=== PATIENT | male | born 1980 | race Caucasian/White ===

== ENCOUNTER 2018-03-27 19:09 | Emergency (ER) | payer MEDICAID ==
[~2018-03-27] VITALS: Ht 188 cm; Wt 142.9 kg
[~2018-03-27 19:09] MED LIST: BUTA1CAP39 PO; HYDR50CA PO; MECL-106 PO; OXCA300T4 PO; RISP1TAB94 PO; TRAZ100T92 PO
--- OUTSIDE RECORDS SUMMARY | 2018-03-27 19:14 | XMS REPORT ---
Author Author EVERARDO WIGGINS [facility] eClinicalWorks Address Unknown Phone Unavailable Care Team Providers Care Terrazzo Supervisor Name Role Phone EVERARDO WIGGINS CP Unavailable Allergies No Known Allergies Problems Problem Type Condition Code Onset Dates Condition Status Problem Post-traumatic headache, unspecified, not intractable G44.309 Active Problem Bipolar disorder, unspecified F31.9 Active Problem Unspecified injury of head, sequela S09.90XS Active Medications Medication Code System Code Instructions Start Date End Date Status Dosage Tramadol HCl [facility] [address]-00 50 mg Orally every 6 hours as needed April 1 tablet Results No Known Results Summary Purpose eClinicalWorks Submission
--- OUTSIDE RECORDS SUMMARY | 2018-03-27 19:14 | XMS REPORT ---
Author EVERARDO Hickey [facility] Address [address] [place] [address] Care Team Providers Care Label Maker Name Role Phone EVERARDO WIGGINS Unavailable PROBLEMS Type Condition ICD9-CM Code [id number] Code Onset Dates Condition Status SNOMED Code Problem Unspecified injury of head, sequela S09.90XS Active 96730678 Problem Post-traumatic headache, unspecified, not intractable G44.309 Active 54686448 Problem Bipolar disorder, unspecified F31.9 Active 59324353 Assessment Post-traumatic headache, unspecified, not intractable G44.309 Jul, Active 24135686 ALLERGIES Substance Reaction Event Type Date Status Latex skin bleeds Drug Allergy Jul, Active SOCIAL HISTORY No smoking Hx information available PLAN OF CARE VITAL SIGNS Height 74.2 in 2016-08-16 Weight 313.2 lbs 2016-08-16 Heart Rate 76 bpm 2016-08-16 Respiratory Rate 20 2016-08-16 BMI 39.99 kg/m2 2016-08-16 Blood pressure systolic 116 mmHg 2016-08-16 Blood pressure diastolic 70 mmHg 2016-08-16 MEDICATIONS Medication Instructions Dosage Frequency Start Date End Date Duration Status Duloxetine HCl 60 MG Orally Once a day 1 capsule 24h Active Meclizine HCl 25 MG Orally Once a day 1 tablet as needed 24h Apr, Active Naproxen 500 MG Orally bid pc 1 Apr, Active Risperdal 1 MG Orally Once a day 1 tablet 24h Active Fioricet 50-300-40 MG Orally every 4 hrs 1 capsule as needed 4h Active Gfcujkhsxp-KYYM-Hjnc-Cod 16-140-65-30 MG TAKE ONE CAPSULE BY MOUTH THREE TIMES DAILY NEEDED Active Trileptal 300 MG Orally 2 times a day 1 tablet 12h Jul, Active Prazosin HCl 1 MG Orally Once a day 1 capsule at bedtime 24h Jul, 30 day(s) Active Gabapentin 300 MG Orally 4 times a day 1 capsule 6h Active Tramadol HCl 50 mg Orally every 6 hours as needed 1 tablet Apr, Active HydrOXYzine Pamoate 50 mg Orally every 6 hrs 1 capsule as needed 6h Sep 30 days Active RESULTS No Results PROCEDURES Procedure Date Ordered Related Diagnosis Body Site Office Visit, Est Pt., Level 2 Aug 16, 2016 IMMUNIZATIONS No Known Immunizations
--- OUTSIDE RECORDS SUMMARY | 2018-03-27 19:14 | XMS REPORT ---
Author Author EVERARDO WIGGINS [facility] Address [address] [place] [address] Care Team Providers Care Lawn Service Manager Name Role Phone EVERARDO WIGGINS Unavailable PROBLEMS Type Condition ICD9-CM Code [id number] Code Onset Dates Condition Status SNOMED Code Problem Unspecified injury of head, sequela S09.90XS Active 33652798 Problem Post-traumatic headache, unspecified, not intractable G44.309 Active 70631747 Problem Bipolar disorder, unspecified F31.9 Active 20521354 Assessment Post-traumatic headache, unspecified, not intractable G44.309 Oct, Active 41619730 ALLERGIES Unknown Allergies SOCIAL HISTORY No smoking Hx information available PLAN OF CARE VITAL SIGNS MEDICATIONS Medication Instructions Dosage Frequency Start Date End Date Duration Status Tramadol HCl 50 mg Orally every 6 hours as needed 1 tablet Apr, Active RESULTS No Results PROCEDURES No Known procedures IMMUNIZATIONS No Known Immunizations
--- OUTSIDE RECORDS SUMMARY | 2018-03-27 19:14 | XMS REPORT ---
Author Author EVERARDO WIGGINS Organization [facility] Address [address] [place] [address] Care Team Providers Care Offshore Wind Operations Manager Name Role Phone EVERARDO WIGGINS Unavailable PROBLEMS Type Condition ICD9-CM Code MTI89-QC Code Onset Dates Condition Status SNOMED Code Problem Migraine without status migrainosus, not intractable, unspecified migraine type G43.909 Active 17111077 Problem Posttraumatic stress disorder F43.10 Active 66168365 Problem Bipolar disorder, unspecified F31.9 Active 66732418 Problem Unspecified injury of head, sequela S09.90XS Active 80040505 Problem Post-traumatic headache, unspecified, not intractable G44.309 Active 68833677 ALLERGIES Unknown Allergies SOCIAL HISTORY No smoking Hx information available PLAN OF CARE VITAL SIGNS MEDICATIONS Medication Instructions Dosage Frequency Start Date End Date Duration Status Gabapentin 300 MG Orally 4 times a day 1 capsule 6h Active Prazosin HCl 1 MG Orally Once a day 1 capsule at bedtime 24h Jul, 30 day(s) Active Risperdal 1 MG Orally Once a day 1 tablet 24h Active HydrOXYzine Pamoate 50 mg Orally every 6 hrs 1 capsule as needed 6h Sep 30 days Active Tramadol HCl 50 mg Orally every 6 hours as needed 1 tablet Apr, Active RESULTS No Results PROCEDURES No Known procedures IMMUNIZATIONS No Known Immunizations
--- OUTSIDE RECORDS SUMMARY | 2018-03-27 19:14 | XMS REPORT ---
Author Author EVERARDO WIGGINS Organization eClinicalWorks Address Unknown Phone Unavailable Care Team Providers Care Game Designer/Creative Director Name Role Phone EVERARDO WIGGINS CP Unavailable Allergies No Known Allergies Problems Problem Type Condition Code Onset Dates Condition Status Problem Post-traumatic headache, unspecified, not intractable G44.309 Active Problem Bipolar disorder, unspecified F31.9 Active Problem Unspecified injury of head, sequela S09.90XS Active Assessment Post-traumatic headache, unspecified, not intractable G44.309 Active Medications Medication Code System Code Instructions Start Date End Date Status Dosage Tramadol HCl [facility] [address]-86 50 mg Orally every 6 hours as needed April 1 tablet Results No Known Results Summary Purpose eClinicalWorks Submission
--- OUTSIDE RECORDS SUMMARY | 2018-03-27 19:14 | XMS REPORT ---
Author Author EVERARDO WIGGINS Organization eClinicalWorks Address Unknown Phone Unavailable Care Team Providers Care Policy Service Coordinator Name Role Phone EVERARDO WIGGINS Unavailable Allergies No Known Allergies Problems Problem Type Condition Code Onset Dates Condition Status Problem Post-traumatic headache, unspecified, not intractable G44.309 Active Problem Bipolar disorder, unspecified F31.9 Active Problem Unspecified injury of head, sequela S09.90XS Active Medications Medication Code System Code Instructions Start Date End Date Status Dosage Trileptal [facility] [address]-80 300 MG Orally twice a day Nov 16, 2015 1 tablet Tramadol HCl [facility] [address]-93 50 mg Orally every 6 hours as needed April 1 tablet Fioricet [facility] [address]-15 50-300-40 MG Orally every 4 hrs 1 capsule as needed Risperdal [facility] [address]-91 1 MG Orally twice a day 1 tablet HydrOXYzine Pamoate [facility] [address]-32 50 mg Orally every 6 hrs Oct 16, 2015 1 capsule as needed Gabapentin [facility] [address]-34 300 MG Orally Three times a day 1 capsule Meclizine HCl [facility] [address]-99 25 MG Orally Once a day May 17, 2016 1 tablet as needed Results No Known Results Summary Purpose eClinicalWorks Submission
--- OUTSIDE RECORDS SUMMARY | 2018-03-27 19:14 | XMS REPORT ---
Author Author GARRET Mcintyre [facility] Address Unknown Care Team Providers Care Corporate Real Estate Manager Name Role Phone GARRET Mcintyre Unavailable PROBLEMS Type Condition ICD9-CM Code IMQ38-IO Code Onset Dates Condition Status SNOMED Code Problem Migraine without status migrainosus, not intractable, unspecified migraine type G43.909 Active 16537305 Problem Posttraumatic stress disorder F43.10 Active 73835167 Problem Bipolar disorder, unspecified F31.9 Active 58820660 Problem Post-traumatic headache, unspecified, not intractable G44.309 Active 91260979 Problem Unspecified injury of head, sequela S09.90XS Active 26977711 ALLERGIES Unknown Allergies SOCIAL HISTORY No smoking Hx information available PLAN OF CARE Activity Details Follow Up prn Reason:1 hr te (upper right) VITAL SIGNS MEDICATIONS Unknown Medications RESULTS No Results PROCEDURES Procedure Date Ordered Related Diagnosis Body Site COMP ORAL EVALUATION - NEW/EST PT Oct 10, 2016 PANORAMIC FILM SEE ALSO CODE 22267 Oct 10, 2016 IMMUNIZATIONS No Known Immunizations
--- OUTSIDE RECORDS SUMMARY | 2018-03-27 19:14 | XMS REPORT ---
Author Author ALBANIA GIL Organization eClinicalWorks Address Unknown Phone Unavailable Care Team Providers Care Loading Inspector Name Role Phone ALBANIA GIL Unavailable Allergies No Known Allergies Problems Problem Type Condition Code Onset Dates Condition Status Assessment Bipolar disorder, unspecified F31.9 Active Problem Bipolar disorder, unspecified F31.9 Active Medications No Known Medications Procedures Procedure Coding System Code Date Psychotherapy, patient &/family, 45 minutes, established patient CPT-4 20466 Nov 06, 2015 Results No Known Results Summary Purpose eClinicalWorks Submission
--- OUTSIDE RECORDS SUMMARY | 2018-03-27 19:14 | XMS REPORT ---
Author Author ALBANIA GIL [facility] eClinicalWorks Address Unknown Phone Unavailable Care Team Providers Care Pillowcase Sewer Name Role Phone ALBANIA GIL Unavailable Allergies No Known Allergies Problems Problem Type Condition Code Onset Dates Condition Status Assessment Bipolar disorder, unspecified F31.9 Active Problem Bipolar disorder, unspecified F31.9 Active Medications No Known Medications Procedures Procedure Coding System Code Date Psychotherapy, patient &/family, 45 minutes, established patient CPT-4 79872 Dec 15, 2015 Results No Known Results Summary Purpose eClinicalWorks Submission
--- OUTSIDE RECORDS SUMMARY | 2018-03-27 19:15 | XMS REPORT ---
Author Author SADIA RAMIREZ Organization [employer]Clinical[employer] Address Unknown Phone Unavailable Care Team Providers Care Export Freight Manager Name Role Phone SADIA RAMIREZ CP Unavailable Allergies No Known Allergies Problems Problem Type Condition Code Onset Dates Condition Status Problem Bipolar disorder, unspecified F31.9 Active Medications No Known Medications Results No Known Results Summary Purpose eClinicalWorks Submission
--- OUTSIDE RECORDS SUMMARY | 2018-03-27 19:15 | XMS REPORT ---
Author Author ALBANIA GIL [facility] eClinicalWorks Address Unknown Phone Unavailable Care Team Providers Care Grade School Teacher Name Role Phone ALBANIA GIL Unavailable Allergies No Known Allergies Problems Problem Type Condition Code Onset Dates Condition Status Assessment Bipolar affective disorder F31.9 Active Problem Bipolar affective disorder F31.9 Active Medications No Known Medications Procedures Procedure Coding System Code Date Psych diagnostic evaluation, new patient CPT-4 62401 Oct 07, 2015 Results No Known Results Summary Purpose eClinicalWorks Submission
--- OUTSIDE RECORDS SUMMARY | 2018-03-27 19:15 | XMS REPORT ---
Author Author EVERARDO WIGGINS Organization [employer] Address Unknown Phone Unavailable Care Team Providers Care Crime Scene Evidence Technician Name Role Phone EVERARDO WIGGINS CP Unavailable Allergies No Known Allergies Problems Problem Type Condition Code Onset Dates Condition Status Problem Post-traumatic headache, unspecified, not intractable G44.309 Active Problem Bipolar disorder, unspecified F31.9 Active Problem Unspecified injury of head, sequela S09.90XS Active Medications No Known Medications Results No Known Results Summary Purpose eClinicalWorks Submission
--- OUTSIDE RECORDS SUMMARY | 2018-03-27 19:15 | XMS REPORT ---
Author Author JULIETTE LAMB Organization eClinicalWorks Address Unknown Phone Unavailable Care Team Providers Care Residential Mortgage Manager Name Role Phone JULIETTE LAMB CP Unavailable Allergies, Adverse Reactions, Alerts Substance Reaction Event Type Latex skin bleeds Drug Allergy Problems Problem Type Condition Code Onset Dates Condition Status Assessment Bipolar disorder, unspecified F31.9 Active Assessment Posttraumatic stress disorder F43.10 Active Problem Bipolar disorder, unspecified F31.9 Active Medications Medication Code System Code Instructions Start Date End Date Status Dosage HydrOXYzine Pamoate [facility] [address]-14 50 MG Orally voucher every 6 hrs Oct 16, 2015 1 capsule as needed Trileptal [facility] [address]-88 300 MG Orally voucher twice a day Nov 16, 2015 as directed Procedures Procedure Coding System Code Date Office Visit, Est Pt., Level 3 CPT-4 98259 Nov 16, 2015 Vital Signs Date/Time: Nov 16, 2015 Blood Pressure Systolic 122 mmHg Weight 317.5 lbs Height 74.2 in BMI 40.54 Index Blood Pressure Diastolic 82 mmHg Results No Known Results Summary Purpose eClinicalWorks Submission
--- OUTSIDE RECORDS SUMMARY | 2018-03-27 19:15 | XMS REPORT ---
Author Author EVERARDO WIGGINS [facility] Address [address] [place] [address] Care Team Providers Care Systems Administration Analyst Name Role Phone EVERARDO WIGGINS Unavailable PROBLEMS Type Condition ICD9-CM Code [id number] Code Onset Dates Condition Status SNOMED Code Problem Migraine without status migrainosus, not intractable, unspecified migraine type G43.909 Active 58270078 Problem Posttraumatic stress disorder F43.10 Active 81443648 Problem Bipolar disorder, unspecified F31.9 Active 06458379 Problem Post-traumatic headache, unspecified, not intractable G44.309 Active 21536817 Problem Unspecified injury of head, sequela S09.90XS Active 52419400 ALLERGIES Unknown Allergies SOCIAL HISTORY No smoking Hx information available PLAN OF CARE VITAL SIGNS MEDICATIONS Medication Instructions Dosage Frequency Start Date End Date Duration Status Dlhreqcjcb-UGYA-Pgue-Cod 53-379-17-30 MG Orally every 8 hours, PRN 1 capsule as needed Active RESULTS No Results PROCEDURES No Known procedures IMMUNIZATIONS No Known Immunizations
--- OUTSIDE RECORDS SUMMARY | 2018-03-27 19:15 | XMS REPORT ---
Author Author JULIETTE LAMB Organization eClinicalWorks Address Unknown Phone Unavailable Care Team Providers Care Methods Specialist Engineer Name Role Phone JULIETTE LAMB CP Unavailable Allergies No Known Allergies Problems Problem Type Condition Code Onset Dates Condition Status Problem Post-traumatic headache, unspecified, not intractable G44.309 Active Problem Bipolar disorder, unspecified F31.9 Active Problem Unspecified injury of head, sequela S09.90XS Active Medications No Known Medications Results No Known Results Summary Purpose eClinicalWorks Submission
--- OUTSIDE RECORDS SUMMARY | 2018-03-27 19:15 | XMS REPORT ---
Author EVERARDO Hickey [facility] eClinicalWorks Address Unknown Phone Unavailable Care Team Providers Care Ski Technician Name Role Phone EVERARDO WIGGINS CP Unavailable Allergies, Adverse Reactions, Alerts Substance Reaction Event Type Latex skin bleeds Drug Allergy Problems Problem Type Condition Code Onset Dates Condition Status Problem Post-traumatic headache, unspecified, not intractable G44.309 Active Problem Bipolar disorder, unspecified F31.9 Active Problem Unspecified injury of head, sequela S09.90XS Active Assessment Unspecified injury of head, sequela S09.90XS Active Assessment Post-traumatic headache, unspecified, not intractable G44.309 Active Medications Medication Code System Code Instructions Start Date End Date Status Dosage Trazodone HCl [facility] [address]-55 100 MG Orally Once a day 2 tablet at bedtime Meclizine HCl [facility] [address]-75 25 MG Orally Once a day May 17, 2016 1 tablet as needed Fioricet [facility] [address]-99 50-300-40 MG Orally every 4 hrs 1 capsule as needed Zofran ODT [facility] [address]-19 8 MG Orally not defined Zofran ODT [facility] [address]-16 8 MG Orally May 17, 2016 as directed Tramadol HCl [facility] [address]-82 50 MG Orally May 17, 2016 as directed Tramadol HCl [facility] [address]-33 50 mg Orally 4 times a day 1 tablet Risperdal [facility] [address]-29 1 MG Orally twice a day 1 tablet Trileptal [facility] [address]-65 300 MG Orally twice a day Nov 16, 2015 1 tablet Gabapentin [facility] [address]-73 300 MG Orally Three times a day 1 capsule Procedures Procedure Coding System Code Date Office Visit, Est Pt., Level 3 CPT-4 00033 June 09, 2016 Vital Signs Date/Time: June 09, 2016 Cardiac Monitoring Heart Rate 68 bpm Weight 311.2 lbs Height 74.2 in Blood Pressure Diastolic 106 mmHg Blood Pressure Systolic 142 mmHg Results No Known Results Summary Purpose eClinicalWorks Submission
--- OUTSIDE RECORDS SUMMARY | 2018-03-27 19:15 | XMS REPORT ---
Author Author JULIETTE LAMB Organization eClinicalWorks Address Unknown Phone Unavailable Care Team Providers Care Manufacturing Maintenance Mechanic Name Role Phone JULIETTE LAMB CP Unavailable Allergies, Adverse Reactions, Alerts Substance Reaction Event Type Latex skin bleeds Drug Allergy Problems Problem Type Condition Code Onset Dates Condition Status Assessment Bipolar disorder, unspecified F31.9 Active Assessment Posttraumatic stress disorder F43.10 Active Problem Bipolar affective disorder F31.9 Active Medications Medication Code System Code Instructions Start Date End Date Status Dosage Risperdal [facility] [address]-94 1 MG Orally voucher twice a day Oct 16, 2015 1 tablet Trazodone HCl [facility] [address]-65 100 MG Orally - voucher Once a day Oct 16, 2015 2 tablets at bedtime HydrOXYzine Pamoate [facility] [address]-05 50 MG Orally voucher every 6 hrs Oct 16, 2015 1 capsule as needed Procedures Procedure Coding System Code Date Psych diagnostic evaluation w/medical services, new patient CPT-4 90998 Oct 16, 2015 Vital Signs Date/Time: Oct 16, 2015 Cardiac Monitoring Heart Rate 72 bpm Weight 315.0 lbs Height 74.2 in BMI 40.22 Index Blood Pressure Diastolic 80 mmHg Blood Pressure Systolic 114 mmHg Results No Known Results Summary Purpose eClinicalWorks Submission
--- OUTSIDE RECORDS SUMMARY | 2018-03-27 19:15 | XMS REPORT ---
Author Author EVERARDO WIGGINS [facility] eClinicalWorks Address Unknown Phone Unavailable Care Team Providers Care Regional Transportation Manager Name Role Phone EVERARDO WIGGINS CP Unavailable Allergies No Known Allergies Problems Problem Type Condition Code Onset Dates Condition Status Problem Post-traumatic headache, unspecified, not intractable G44.309 Active Problem Bipolar disorder, unspecified F31.9 Active Problem Unspecified injury of head, sequela S09.90XS Active Medications Medication Code System Code Instructions Start Date End Date Status Dosage Tramadol HCl [facility] [address]-17 50 mg Orally every 6 hours as needed April 1 tablet Results No Known Results Summary Purpose eClinicalWorks Submission
--- OUTSIDE RECORDS SUMMARY | 2018-03-27 19:15 | XMS REPORT ---
Author Author JULIETTE LAMB Organization [facility] Address Unknown Care Team Providers Care Computer Systems Security Administrator Name Role Phone JULIETTE LAMB Unavailable PROBLEMS Type Condition ICD9-CM Code [id number] Code Onset Dates Condition Status SNOMED Code Problem Unspecified injury of head, sequela S09.90XS Active 22424171 Problem Post-traumatic headache, unspecified, not intractable G44.309 Active 56764946 Assessment Posttraumatic stress disorder F43.10 Jul, Active 67049075 Problem Bipolar disorder, unspecified F31.9 Active 13648851 Assessment Bipolar disorder, unspecified F31.9 Jul, Active 60634345 ALLERGIES Substance Reaction Event Type Date Status Latex skin bleeds Drug Allergy Jul, Active SOCIAL HISTORY No smoking Hx information available PLAN OF CARE VITAL SIGNS Height 74.2 in 2016-08-15 Weight 310.2 lbs 2016-08-15 Heart Rate 72 bpm 2016-08-15 Respiratory Rate 20 2016-08-15 BMI 39.61 kg/m2 2016-08-15 Blood pressure systolic 130 mmHg 2016-08-15 Blood pressure diastolic 85 mmHg 2016-08-15 MEDICATIONS Medication Instructions Dosage Frequency Start Date End Date Duration Status Risperdal 1 MG Orally twice a day 1 tablet 12h 30 days Active Gabapentin 300 MG Orally Three times a day 1 capsule 8h Active Prazosin HCl 1 MG Orally Once a day 1 capsule at bedtime 24h Jul, 30 day(s) Active Duloxetine HCl 60 MG Orally Once a day 1 capsule 24h Active Trileptal 300 MG Orally three times a day 1 tablet 8h Jul, 30 days Active Fioricet 50-300-40 MG Orally every 4 hrs 1 capsule as needed 4h Active Meclizine HCl 25 MG Orally Once a day 1 tablet as needed 24h Apr, Active HydrOXYzine Pamoate 50 mg Orally every 6 hrs 1 capsule as needed 6h Sep 30 days Active Naproxen 500 MG Orally bid pc 1 Apr, Active Mcuvzhtskj-TJYF-Zwbw-Cod 67-532-44-30 MG TAKE ONE CAPSULE BY MOUTH THREE TIMES DAILY NEEDED Active Tramadol HCl 50 mg Orally every 6 hours as needed 1 tablet Apr, Active RESULTS No Results PROCEDURES Procedure Date Ordered Related Diagnosis Body Site Office Visit, Est Pt., Level 3 Aug 15, 2016 IMMUNIZATIONS No Known Immunizations
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
--- OUTSIDE RECORDS SUMMARY | 2018-03-27 19:15 | XMS REPORT ---
Author Author EVERARDO WIGGINS [facility] Address [address] [place] [address] Care Team Providers Care Graphic Design Professor Name Role Phone EVERARDO WIGGINS Unavailable PROBLEMS Type Condition ICD9-CM Code MPH79-YU Code Onset Dates Condition Status SNOMED Code Problem Migraine without status migrainosus, not intractable, unspecified migraine type G43.909 Active 53482939 Problem Posttraumatic stress disorder F43.10 Active 76140298 Problem Bipolar disorder, unspecified F31.9 Active 32253897 Problem Post-traumatic headache, unspecified, not intractable G44.309 Active 72162228 Problem Unspecified injury of head, sequela S09.90XS Active 38457078 ALLERGIES No Information SOCIAL HISTORY Never Assessed PLAN OF CARE VITAL SIGNS MEDICATIONS Unknown Medications RESULTS No Results PROCEDURES No Known procedures IMMUNIZATIONS No Known Immunizations MEDICAL (GENERAL) HISTORY Type Description Date Medical History bipolar disorder Medical History PTSD Medical History 13 concussions per pt Surgical History Bilateral knee scope Surgical History Left ankle scope Hospitalization History Hospitalization for surgery only
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
[2018-03-27 22:14] LABS: BASOPHILS % (AUTO) 0 % (0-10); EOSINOPHILS # (AUTO) 0.6 10^3/uL (0.0-0.3); EOSINOPHILS % (AUTO) 6 % (0-10); HEMATOCRIT 42 % (40-54); HEMOGLOBIN 14.4 G/DL (13.3-17.7); LYMPHOCYTES % (AUTO) 28 % (12-44); MEAN CORPUSCULAR HEMOGLOBIN 31 PG (25-34); MEAN CORPUSCULAR HGB CONC 35 G/DL (32-36); MEAN CORPUSCULAR VOLUME 90 FL (80-99); MEAN PLATELET VOLUME 12.4 FL (7.4-10.4); MONOCYTES # (AUTO) 0.9 X 10^3 (0.0-1.0); MONOCYTES % (AUTO) 9 % (0-12); NEUTROPHILS % (AUTO) 57 % (42-75); PLATELET COUNT 185 10^3/uL (130-400); RED BLOOD COUNT 4.59 10^6/uL (4.35-5.85); RED CELL DISTRIBUTION WIDTH 13.2 % (10.0-14.5); WHITE BLOOD COUNT 10.6 10^3/uL (4.3-11.0)
[2018-03-27 22:32] LABS: ALANINE AMINOTRANSFERASE 76 U/L (0-55); ALBUMIN 4.3 GM/DL (3.2-4.5); ALKALINE PHOSPHATASE 67 U/L (40-136); BILIRUBIN,TOTAL 0.5 MG/DL (0.1-1.0); BUN/CREATININE RATIO 18; CALCIUM 9.6 MG/DL (8.5-10.1); CARBON DIOXIDE 23 MMOL/L (21-32); CHLORIDE 106 MMOL/L (98-107); CREATININE SERUM 1.01 MG/DL (0.60-1.30); GFR ESTIMATED > 60; GLUCOSE 103 MG/DL (70-105); SODIUM 140 MMOL/L (135-145); TOTAL PROTEIN 7.4 GM/DL (6.4-8.2)
[2018-03-27] MEDS ORDERED: CYCLOBENZAPRINE 10 MG (FLEXERIL) TAB PO STA (23:14)
[2018-03-27] MEDS ORDERED: TIZA4CAP PO (23:18)
[2018-03-27 23:27] VITALS: BP 140/74
--- NOTE | 2018-03-28 06:45 | Diagnostic Imaging Report ---
PROCEDURE: US left lower extremity venous. TECHNIQUE: Multiple real-time grayscale images were obtained over the left lower extremity in various projections. Additional duplex Doppler and color Doppler images were also obtained. INDICATION: Left leg pain. FINDINGS: There is normal color flow enhancement throughout the left lower extremity venous system. No evidence of thrombosis. There is normal augmentation of flow with calf compression. No popliteal cyst. IMPRESSION: Negative left lower extremity for venous thrombosis. Dictated by: Dictated on workstation # [id number]
== END 2018-03-27 23:28 | disposition home or self-care (01) ==
LOC: EDUNIT# 19:09 → ER 19:11
DX: M79.662 Pain in left lower leg (principal); F17.210 Nicotine dependence, cigarettes, uncomplicated; G43.909 Migraine, unspecified, not intractable, without status migrainosus; M54.5 Low back pain; G89.29 Other chronic pain; Z91.040 Latex allergy status; Z88.8 Allergy status to other drugs, medicaments and biological substances
CPT/HCPCS: 36415; 80053; 85025; 86141

== ENCOUNTER → 2018-07-16 | Outpatient (CLI) | payer MEDICAID ==
[~2018-07-16] MED LIST changes: +TIZA4CAP PO; +TRAZ-190 PO; -TRAZ100T92 PO
--- NOTE | 2018-07-16 11:01 | Diagnostic Imaging Report ---
INDICATION: Back pain. TECHNIQUE: AP and lateral views of the lumbar spine were obtained FINDINGS: The lumbar vertebrae are normal in height and alignment. There is no fracture, subluxation, or compression deformity. There is no spondylolysis or spondylolisthesis. The disc spaces are normal in height. IMPRESSION: Unremarkable lumbar spine series. Dictated by: Dictated on workstation # [id number]
== END ==
LOC: RAD 08:53
PROVIDERS: ATTEND Family Medicine
DX: M54.16 Radiculopathy, lumbar region (principal); M62.81 Muscle weakness (generalized)
CPT/HCPCS: 72100

== ENCOUNTER 2018-12-25 09:39 | Outpatient (RCR) | payer MEDICAID, OTHER ==
[2018-12-28] MEDS ORDERED: TRIA16.99 NS (12:31)
[2018-12-28] MEDS ORDERED: RIZA10TA25 PO (12:31)
[2018-12-28] MEDS ORDERED: FLUO60TA PO (12:31)
[2018-12-28] MEDS ORDERED: CLON1TAB13 PO (12:31)
[2018-12-28] MEDS ORDERED: TRAM50TA2 PO (12:31)
[2018-12-28] MEDS ORDERED: NORT10CA PO (12:31)
[2018-12-28] MEDS ORDERED: GABA-488 PO (12:31)
== END 2019-01-11 10:57 | disposition home or self-care (01) ==
PROVIDERS: ATTEND Family Medicine
DX: M50.30 Other cervical disc degeneration, unspecified cervical region (principal); G44.209 Tension-type headache, unspecified, not intractable; Z87.820 Personal history of traumatic brain injury

== ENCOUNTER 2018-12-28 11:57 | Emergency (ER) | payer OTHER ==
[~2018-12-28] VITALS: Ht 188 cm; Wt 142.9 kg
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
[2018-12-28] MEDS ORDERED: CLON1TAB13 PO (12:31)
[2018-12-28] MEDS ORDERED: TRIA16.99 NS (12:31)
[2018-12-28] MEDS ORDERED: NORT10CA PO (12:31)
[2018-12-28] MEDS ORDERED: RIZA10TA25 PO (12:31)
[2018-12-28] MEDS ORDERED: GABA-488 PO (12:31)
[2018-12-28] MEDS ORDERED: TRAM50TA2 PO (12:31)
[2018-12-28] MEDS ORDERED: FLUO60TA PO (12:31)
--- NOTE | 2018-12-28 12:32 | NUR ---
PT. DENIES SUICIDAL IDEATIONS AT THIS TIME.
--- NOTE | 2018-12-28 13:52 | ED Psychosocial ---
General Chief Complaint: Psych/Social Disorder Stated Complaint: MENTAL EVALUATION Nursing Triage Note: C/O HEARING VOICES. HAS NOT BEEN TAKING PSYCH MEDS FOR @ 3 MONTHS. Source: patient Exam Limitations: no limitations History of Present Illness Date Seen by Provider: Dec 28, 2018 Time Seen by Provider: 13:20 Initial Comments 38-year-old male who presents to the emergency room with complaints of hearing voices that started last night. He has had history of auditory hallucinations and mental health disorder but reports that he has not taken any of his medication for 3 months. He reports that he went home early from work yesterday because he became very angry at his situation with his coworkers and he felt like he was going to harm them. He reports that the voices started last night and are telling him that if he just her his coworkers people might respect him. The voices are also "degrading and belittling him" "telling him that he is worthless". He reports that he's heard voices in the past but never the ones telling him to harm someone. He sees Delores Arango M.D. for primary care. He does not see anyone for mental health since moving to the area 6 months ago. Timing/Duration: yesterday Associated Symptoms: other (auditory hallucinations telling him to harm coworkers.) Allergies and Home Medications Allergies Coded Allergies: latex (Unverified Allergy, Unknown, 07/22/14) Uncoded Allergies: TRAZADONE (Allergy, Mild, 03/27/18) Home Medications Clonazepam 1 Mg Tablet, 1 MG PO DAILY, (Reported) Fluoxetine HCl 60 Mg Tablet, 60 MG PO DAILY, (Reported) Gabapentin 300 Mg Capsule, 300 MG PO TID, (Reported) Nortriptyline HCl 10 Mg Capsule, 10 MG PO HS, (Reported) Rizatriptan Benzoate 10 Mg Tab.rapdis, 10 MG PO PRN, (Reported) Tizanidine HCl 4 Mg Capsule, 4 MG PO TID PRN for SPASMS Prescribed by: JUANIS SHARMA on 03/27/18 0852 Tramadol HCl 50 Mg Tablet, 50 MG PO PRN, (Reported) Patient Home Medication List Home Medication List Reviewed: Yes Review of Systems Constitutional: no symptoms reported, see HPI Psychiatric/Neurological: See HPI, Emotional Problems, Other (auditory hallucinations) All Other Systems Reviewed Negative Unless Noted: Yes Past Ybnzwfh-Hrpsxp-Wkkmww Hx Past Med/Social Hx: Reviewed Nursing Past Med/Soc Hx Patient Social History Alcohol Use: Rarely Uses Number of Drinks Today: AA Alcohol Beverage of Choice: Beer Recreational Drug Use: No Smoking Status: Former Smoker Type Used: Electronic/Vapor, Smokeless Tobacco Former Smoker, Quit: Jan 16, 2007 Recent Foreign Travel: No Contact w/Someone Who Travel: No Recent Infectious Disease Expo: No Recent Hopitalizations: No Immunizations Up To Date Tetanus Booster (TDap): Less than 5yrs PED Vaccines UTD: Yes Past Medical History Surgeries: Yes (nasal sinus sx) Orthopedic Respiratory: No Cardiac: No Neurological: Yes Headaches /Migraines Reproductive Disorders: No Genitourinary: No Gastrointestinal: No Musculoskeletal: Yes Degenerate Disk Disease, Chronic Back Pain Endocrine: No Cancer: No Psychosocial: Yes Anxiety, PTSD, Violent Behavior, Depression Integumentary: No Blood Disorders: No Family Medical History Reviewed Nursing Family Hx No Pertinent Family Hx Physical Exam Vital Signs - First Documented 12/28/18 12:17 Temp 98.6 Pulse 82 Resp 18 B/P (MAP) 156/87 (110) Pulse Ox 97 O2 Delivery Room Air Capillary Refill : Less Than 3 Seconds Height, Weight, BMI Height: 6'2.00" Weight: 315lbs. oz. 142.653424oi; 36.59 BMI Method:Stated General Appearance: WD/WN, no apparent distress HEENT: PERRL/EOMI, normal ENT inspection, TMs normal, pharynx normal Respiratory: chest non-tender, lungs clear, normal breath sounds, no respiratory distress, no accessory muscle use, respiratory distress Cardiovascular: normal peripheral pulses, regular rate, rhythm, no edema, no gallop, no JVD, no murmur Gastrointestinal: normal bowel sounds, non tender, soft, no organomegaly, no pulsatile mass Neurologic/Psychiatric: alert, normal mood/affect, oriented x 3 Appearance/Memory: appropriate appearance, neat Behavior/Eye Contact: cooperative, good eye contact, normal speech Thoughts/Hallucinations: auditory hallucinations Skin: normal color, warm/dry Lymphatic: no adenopathy Progress/Results/Core Measures Results/Orders Lab Results My Orders Vital Signs/I&O Blood Pressure Mean: 110 Progress Progress Note : Time: 14:56 Progress Note I have seen and evaluated the patient. I believe he does meet inpatient criteria. I have called [facility] and they do have bed availability. Awaiting laboratory results at this time. 1635: [facility] has agreed to accept the patient. Provider to provider report given to Dr. De Los Santos at this time. [facility] will be providing secure transport. Initial ECG Impression Date: Dec 28, 2018 Initial ECG Impression Time: 14:42 Initial ECG Rate: 77 Initial ECG Rhythm: Normal Sinus Initial ECG Intervals: Normal Initial ECG Impression: Normal Initial ECG Comparisson: No Previous ECG Available Departure Impression Primary Impression: Psychosis Additional Impression: Auditory hallucinations Disposition: 01 HOME, SELF-CARE Condition: Stable/Unchanged Transfer Time Spoke to Accepting Phy: 16:[address] De Los Santos Transfer Time: 18:00 Transfer Facility: [facility] Method of Transfer: [facility]- Padmini Hammond Departure-Patient Inst. Referrals: PRINCE ARANGO MD (PCP) Primary Care Physician Work/School Note: Work Release Form Date Seen in the Emergency Department: Dec 28, 2018 Return to Work: Jan 01, 2019 Restrictions: No Restrictions DEBRA LEYVA Dec 28, 2018 13:52
[2018-12-28 14:54] LABS: BILIRUBIN,URINE NEGATIVE (NEGATIVE); CLARITY,URINE CLEAR; COLOR,URINE YELLOW; GLUCOSE, URINE (UA) NEGATIVE (NEGATIVE); KETONES,URINE NEGATIVE (NEGATIVE); LEUKOCYTE ESTERASE ,URINE NEGATIVE (NEGATIVE); NITRITE,URINE NEGATIVE (NEGATIVE); PH,URINE 6 (5-9); PROTEIN,URINE NEGATIVE (NEGATIVE); UROBILINOGEN,URINE 1 MG/DL (NORMAL)
[2018-12-28 14:56] LABS: BASOPHILS % (AUTO) 0 % (0-10); EOSINOPHILS # (AUTO) 0.4 10^3/uL (0.0-0.3); EOSINOPHILS % (AUTO) 3 % (0-10); HEMATOCRIT 45 % (40-54); HEMOGLOBIN 15.6 G/DL (13.3-17.7); LYMPHOCYTES # (AUTO) 2.6 X 10^3 (1.0-4.0); LYMPHOCYTES % (AUTO) 21 % (12-44); MEAN CORPUSCULAR HEMOGLOBIN 32 PG (25-34); MEAN CORPUSCULAR HGB CONC 35 G/DL (32-36); MEAN CORPUSCULAR VOLUME 91 FL (80-99); MONOCYTES # (AUTO) 1.2 X 10^3 (0.0-1.0); MONOCYTES % (AUTO) 9 % (0-12); NEUTROPHILS # (AUTO) 8.3 X 10^3 (1.8-7.8); NEUTROPHILS % (AUTO) 66 % (42-75); PLATELET COUNT 204 10^3/uL (130-400); RED CELL DISTRIBUTION WIDTH 13.8 % (10.0-14.5); WHITE BLOOD COUNT 12.5 10^3/uL (4.3-11.0)
[2018-12-28 15:08] LABS: AMPHETAMINE SCREEN, URINE NEGATIVE (NEGATIVE); BARBITURATE SCREEN URINE NEGATIVE (NEGATIVE); BENZODIAZEPINES SCREEN URINE POSITIVE (NEGATIVE); CANNABINOID SCREEN, URINE NEGATIVE (NEGATIVE); COCAINE SCREEN URINE NEGATIVE (NEGATIVE); METHADONE STAT NEGATIVE (NEGATIVE); METHAMPHETAMINE SCREEN URINE S NEGATIVE (NEGATIVE); OPIATE SCREEN URINE NEGATIVE (NEGATIVE); OXYCODONE STAT NEGATIVE (NEGATIVE); PROPOXYPHENE STAT NEGATIVE (NEGATIVE); TRICYCLIC ANTIDEPRESSANTS SCRE NEGATIVE (NEGATIVE)
[2018-12-28 15:11] LABS: ALANINE AMINOTRANSFERASE 33 U/L (0-55); ALBUMIN 4.6 GM/DL (3.2-4.5); ALKALINE PHOSPHATASE 71 U/L (40-136); BILIRUBIN,TOTAL 0.5 MG/DL (0.1-1.0); BUN/CREATININE RATIO 24; CALCIUM 9.8 MG/DL (8.5-10.1); CARBON DIOXIDE 21 MMOL/L (21-32); CHLORIDE 105 MMOL/L (98-107); GFR ESTIMATED > 60; GLUCOSE 98 MG/DL (70-105); POTASSIUM 4.3 MMOL/L (3.6-5.0); SALICYLATE < 5.0 MG/DL (5.0-20.0); SODIUM 141 MMOL/L (135-145); TOTAL PROTEIN 8.3 GM/DL (6.4-8.2)
[2018-12-28 15:17] LABS: BACTERIA,URINE NEGATIVE /HPF; WBC,URINE 0-2 /HPF
[2018-12-28 15:17] LABS: ACETAMINOPHEN < 10 UG/ML (10-30)
[2018-12-28 18:12] VITALS: BP 123/60
== END 2018-12-28 18:12 | disposition home or self-care (01) ==
LOC: EDUNIT# 11:57 → ER 11:58
DX: F29 Unspecified psychosis not due to a substance or known physiological condition (principal); R44.0 Auditory hallucinations; G43.909 Migraine, unspecified, not intractable, without status migrainosus; F41.9 Anxiety disorder, unspecified; F43.10 Post-traumatic stress disorder, unspecified; F32.9 Major depressive disorder, single episode, unspecified; Z91.040 Latex allergy status; Z88.8 Allergy status to other drugs, medicaments and biological substances; Z87.891 Personal history of nicotine dependence; Z98.890 Other specified postprocedural states
CPT/HCPCS: 36415; 80053; 80306; 80320; 80329; 81000; 84443; 85025; 93005; 93041

== ENCOUNTER 2019-03-18 16:19 | Emergency (ER) | payer OTHER ==
[~2019-03-18] VITALS: Ht 188 cm; Wt 129.3 kg
[~2019-03-18 16:19] MED LIST changes: +CLON1TAB13 PO; +FLUO60TA PO; +GABA-488 PO; +NORT10CA PO; +RIZA10TA25 PO; +TRAM50TA2 PO; +TRIA16.99 NS
--- NOTE | 2019-03-18 16:44 | ED Headache ---
General Chief Complaint: Head/Cervical Problems Stated Complaint: MIGRAINE Source: patient Exam Limitations: no limitations History of Present Illness Date Seen by Provider: Mar 18, 2019 Time Seen by Provider: 16:44 Allergies and Home Medications Allergies Coded Allergies: latex (Unverified Allergy, Unknown, 07/22/14) Uncoded Allergies: TRAZADONE (Allergy, Mild, 03/27/18) Home Medications Clonazepam 1 Mg Tablet, 1 MG PO DAILY, (Reported) Fluoxetine HCl 60 Mg Tablet, 60 MG PO DAILY, (Reported) Gabapentin 300 Mg Capsule, 300 MG PO TID, (Reported) Nortriptyline HCl 10 Mg Capsule, 10 MG PO HS, (Reported) Rizatriptan Benzoate 10 Mg Tab.rapdis, 10 MG PO PRN, (Reported) Tizanidine HCl 4 Mg Capsule, 4 MG PO TID PRN for SPASMS Prescribed by: JUANIS SHARMA on 03/27/18 7818 Tramadol HCl 50 Mg Tablet, 50 MG PO PRN, (Reported) Past [place]-Taylur-Dftscp Hx Patient Social History Alcohol Beverage of Choice: Beer Type Used: Electronic/Vapor, Smokeless Tobacco Former Smoker, Quit: Jan 16, 2007 Recent Foreign Travel: No Contact w/Someone Who Travel: No Recent Hopitalizations: No Immunizations Up To Date Tetanus Booster (TDap): Less than 5yrs PED Vaccines UTD: Yes Past Medical History Surgeries: Yes (nasal sinus sx) Orthopedic Respiratory: No Cardiac: No Neurological: Yes Headaches /Migraines Reproductive Disorders: No Genitourinary: No Gastrointestinal: No Musculoskeletal: Yes Degenerate Disk Disease, Chronic Back Pain Endocrine: No Cancer: No Psychosocial: Yes Anxiety, PTSD, Violent Behavior, Depression Integumentary: No Blood Disorders: No Family Medical History No Pertinent Family Hx Physical Exam Vital Signs Vital Signs - First Documented 03/18/19 16:35 Temp 98.5 Pulse 81 Resp 16 B/P (MAP) 129/81 (97) Pulse Ox 97 O2 Delivery Room Air Capillary Refill : Height, Weight, BMI Height: 6'2.00" Weight: 315lbs. oz. 142.803289uq; 36.59 BMI Method:Stated Progress/Results/Core Measures Results/Orders My Orders Orders - AUTUMNDEBAR Ketorolac Injection (Toradol Injection) (03/18/19 16:45) Diphenhydramine Injection (Benadryl Inje (03/18/19 16:45) Prochlorperazine Injection (Compazine In (03/18/19 16:45) Medications Given in ED Current Medications Medications Dose Ordered Sig/Anival Route Start Time Stop Time Status Last Admin Dose Admin Diphenhydramine HCl 50 mg ONCE ONCE IM 03/18/19 16:45 03/18/19 16:46 DC 03/18/19 16:58 50 MG Ketorolac Tromethamine 60 mg ONCE ONCE IM 03/18/19 16:45 03/18/19 16:46 DC 03/18/19 16:58 60 MG Prochlorperazine Edisylate 10 mg ONCE ONCE IM 03/18/19 16:45 03/18/19 16:46 DC 03/18/19 16:58 10 MG Vital Signs/I&O 03/18/19 16:35 Temp 98.5 Pulse 81 Resp 16 B/P (MAP) 129/81 (97) Pulse Ox 97 O2 Delivery Room Air Progress Progress Note : Time: 17:51 Progress Note I have seen and evaluated the patient. His migraine has resolved after medications and he is pain-free at this time. He agrees with plan of care, plans for discharge, return precautions were given. Departure Impression Primary Impression: Migraine Disposition: 01 HOME, SELF-CARE Condition: Stable/Unchanged Departure-Patient Inst. Decision time for Depature: 17:50 Referrals: PRINCE BAGLEY MD (PCP/Family) Primary Care Physician Patient Instructions: Migraine Headache (DC) Add. Discharge Instructions: Resume your home medications as previously prescribed. You may use ibuprofen and Tylenol as directed by the bottle for pain relief. Return back to the emergency room for worsening symptoms or concerns as needed. Follow-up with your primary care provider within 1 week for recheck. All discharge instructions reviewed with patient and/or family. Voiced understanding. DEBRA LEYVA Mar 18, 2019 16:44
[2019-03-18] MEDS ORDERED: KETOROLAC 60 MG/2 ML VIAL IM ONE (16:45)
[2019-03-18] MEDS ORDERED: diphenhydrAMINE 50 MG/ML INJ (BENADRYL) IM ONE (16:45)
[2019-03-18] MEDS ORDERED: PROCHLORPERAZINE 10 MG/2ML INJ (COMPAZINE) IM ONE (16:45)
--- NOTE | 2019-03-18 17:49 | NUR ---
PATIENT RESTING QUIETLY ON BED. HE STATES HIS MIGRAINE IS IMPROVING AND RATES HIS PAIN AT A 6 OUT OF 10.
[2019-03-18 17:59] VITALS: BP 120/75
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
== END 2019-03-18 18:02 | disposition home or self-care (01) ==
LOC: EDUNIT# 16:19 → ER 16:19
DX: G43.909 Migraine, unspecified, not intractable, without status migrainosus (principal); F41.9 Anxiety disorder, unspecified; F43.10 Post-traumatic stress disorder, unspecified; F32.9 Major depressive disorder, single episode, unspecified; Z91.040 Latex allergy status; Z88.8 Allergy status to other drugs, medicaments and biological substances; Z87.891 Personal history of nicotine dependence
CPT/HCPCS: 99284

== ENCOUNTER 2020-01-09 05:13 | Emergency (ER) | payer BC ==
[~2020-01-09] VITALS: Ht 193 cm; Wt 132.9 kg
[~2020-01-09 05:13] MED LIST changes: -NORT10CA PO; +NRT10C PO; -RIZA10TA25 PO; +RIZA10TA94 PO; -TRAM50TA2 PO; +TRM50T PO
[2020-01-09] MEDS ORDERED: IBUPROFEN 800 MG (MOTRIN) TAB PO STA (05:31)
--- NOTE | 2020-01-09 05:36 | ED Cough/URI ---
General Stated Complaint: FEVER,COUGHING,CONGESTION Source: patient Exam Limitations: no limitations History of Present Illness Date Seen by Provider: Jan 09, 2020 Time Seen by Provider: 05:24 Initial Comments Here with report of 3 days of fevers, chills, body aches, cough and overall not feeling well. Worse today when he tried to go to work. Has had close contacts with influenza B at home and at work. Denies nausea or vomiting. Timing/Duration: getting worse, other (3 days ago) Severity/Quality: moderate, dry cough Modifying Factors: Improves With Rest Associated Symptoms: cough, fever/chills, muscle aches, nasal congestion, nasal drainage, shortness of breath, wheezing Allergies and Home Medications Allergies Coded Allergies: latex (Unverified Allergy, Unknown, 07/22/14) Uncoded Allergies: TRAZADONE (Allergy, Mild, 03/27/18) Home Medications Clonazepam 1 Mg Tablet, 1 MG PO DAILY, (Reported) Fluoxetine HCl 60 Mg Tablet, 60 MG PO DAILY, (Reported) Gabapentin 300 Mg Capsule, 300 MG PO TID, (Reported) Nortriptyline HCl 10 Mg Capsule, 10 MG PO HS, (Reported) Rizatriptan Benzoate 10 Mg Tab.rapdis, 10 MG PO PRN, (Reported) Tizanidine HCl 4 Mg Capsule, 4 MG PO TID PRN for SPASMS Prescribed by: JUANIS SHARMA on 03/27/18 1059 Tramadol HCl 50 Mg Tablet, 50 MG PO PRN, (Reported) Patient Home Medication List Home Medication List Reviewed: Yes Review of Systems Review of Systems Constitutional: see HPI, chills, fever EENTM: see HPI Respiratory: see HPI Cardiovascular: no symptoms reported Gastrointestinal: no symptoms reported Genitourinary: no symptoms reported Skin: no symptoms reported Past Ouzsdcv-Erbvfb-Paavdz Hx Past Med/Social Hx: Reviewed Nursing Past Med/Soc Hx Patient Social History Alcohol Use: Occasionally Uses Alcohol Beverage of Choice: Beer Drug of Choice: MARIJUANA Type Used: Electronic/Vapor, Smokeless Tobacco Former Smoker, Quit: Jan 16, 2007 2nd Hand Smoke Exposure: Yes Recent Foreign Travel: No Contact w/Someone Who Travel: No Recent Hopitalizations: No Immunizations Up To Date Tetanus Booster (TDap): Less than 5yrs PED Vaccines UTD: Yes Seasonal Allergies Seasonal Allergies: No Past Medical History Surgeries: Yes (nasal sinus sx, DENTAL) Orthopedic Respiratory: No Cardiac: No Neurological: Yes Headaches /Migraines Reproductive Disorders: No Genitourinary: No Gastrointestinal: No Musculoskeletal: Yes Degenerate Disk Disease, Chronic Back Pain Endocrine: No HEENT: No Cancer: No Psychosocial: Yes Anxiety, PTSD, Violent Behavior, Depression Integumentary: No Blood Disorders: No Family Medical History Reviewed Nursing Family Hx No Pertinent Family Hx Physical Exam Vital Signs - First Documented 01/09/20 05:20 Temp 38.6 Pulse 98 Resp 20 B/P (MAP) 114/94 (101) Pulse Ox 97 Capillary Refill : Height: 6'2.00" Weight: 285lbs. oz. 129.524213bs; 36.59 BMI Method:Actual General Appearance: WD/WN, no apparent distress HEENT: PERRL/EOMI, pharyngeal erythema, other (bilateral nasal congestion with clear rhinorrhea moderate erythema) Neck: full range of motion, supple, normal inspection Respiratory: lungs clear, normal breath sounds Cardiovascular: no murmur, tachycardia Gastrointestinal: non tender, soft Neurologic/Psychiatric: alert, oriented x 3 Skin: normal color, warm/dry Progress/Results/Core Measures Suspected Sepsis SIRS Temperature: Pulse: Respiratory Rate: Blood Pressure / Mean: Results/Orders My Orders Orders - JUANIS SHARMA MD Influenza A And B Antigens (01/09/20 05:18) Ibuprofen Tablet (Motrin Tablet) (01/09/20 05:31) Vital Signs/I&O 01/09/20 01/09/20 05:20 05:38 Temp 38.6 36.6 Pulse 98 Resp 20 B/P (MAP) 114/94 (101) Pulse Ox 97 Capillary Refill : Progress Note : Progress Note Seen and evaluated. Influenza screen ordered. Patient would be outside of window for Tamiflu as he is 3 days into the illness. Ibuprofen 800 mg by mouth ordered. Monitor patient. 0559: Patient is influenza B positive. Discuss with the patient. Discharged home with return precautions. Patient verbalize understanding instructions and agreement with plan. Departure Impression Primary Impression: Influenza B Disposition: 01 HOME, SELF-CARE Condition: Stable Departure-Patient Inst. Decision time for Depature: 05:35 Referrals: PRINCE BAGLEY MD (PCP/Family) Primary Care Physician Patient Instructions: Viral Upper Respiratory Infection, Adult (DC) Add. Discharge Instructions: You may take Tylenol/acetaminophen 1000 mg every 8 hours as needed for fever or pain. You may take ibuprofen 800 mg every 8 hours as needed for fever or pain. You may use Afrin nasal spray or the generic, 12 hour relief, 2 sprays to each nostril twice daily for 3 days only and then stop. Do not use more than 3 days. Follow-up with your Dr. in a few days for recheck. Drink plenty of fluids. Return for worse pain, fever, vomiting, weakness, breathing problems or other concerns as needed. Work/School Note: Work Release Form Date Seen in the Emergency Department: Jan 09, 2020 Return to Work: Jan 11, 2020 Restrictions: No Restrictions JUANIS SHARMA MD Jan 09, 2020 05:36
[2020-01-09 06:09] VITALS: BP 114/94
== END 2020-01-09 06:09 | disposition home or self-care (01) ==
LOC: EDUNIT# 05:13 → ER 05:16
DX: J10.1 Influenza due to other identified influenza virus with other respiratory manifestations (principal); G43.909 Migraine, unspecified, not intractable, without status migrainosus; F41.9 Anxiety disorder, unspecified; F43.10 Post-traumatic stress disorder, unspecified; M54.9 Dorsalgia, unspecified; G89.29 Other chronic pain; Z91.040 Latex allergy status; Z88.8 Allergy status to other drugs, medicaments and biological substances; Z87.891 Personal history of nicotine dependence
CPT/HCPCS: 87804